=== PATIENT | male | born 1975 | race Caucasian/White ===

== ENCOUNTER 2019-05-16 12:15 | Emergency (ER) | payer SELFPAY ==
[~2019-05-16] VITALS: Ht 188 cm; Wt 80.0 kg
[2019-05-16 13:32] LABS: BASOPHILS # (AUTO) 0.06 x10^3/uL (0-0.1); BASOPHILS % (AUTO) 0 % (0-1); EOSINOPHILS # (AUTO) 0.01 x10^3/uL (0-0.4); EOSINOPHILS % (AUTO) 0 % (1-7); LYMPHOCYTES # (AUTO) 1.42 x10^3/uL (1-3.4); LYMPHOCYTES % (AUTO) 9 % (22-44); MD NO; MEAN CORPUSCULAR HEMOGLOBIN 30.1 pg (27.5-34.5); MEAN CORPUSCULAR HGB CONC 33.8 g/dL (33.2-36.2); MEAN CORPUSCULAR VOLUME 88.9 fL (81-97); MEAN PLATELET VOLUME 7.8 fL (7.4-10.4); MONOCYTES % (AUTO) 7 % (2-9); NEUTROPHILS # (AUTO) 12.73 x10^3/uL (1.8-6.8); NEUTROPHILS % (AUTO) 83 % (42-75); PLATELET COUNT 363 x10^3/uL (130-400); RED BLOOD COUNT 5.04 x10^6/uL (4.38-5.82); RED CELL DISTRIBUTION WIDTH 13.8 % (9.4-14.8)
[2019-05-16 13:46] LABS: ALANINE AMINOTRANSFERASE 21 U/L (12-78); ALBUMIN 4.2 g/dL (3.4-5.0); ANION GAP 8 mmol/L (5-15); CALCIUM 9.9 mg/dL (8.5-10.1); CREATININE 0.93 mg/dL (0.7-1.3); SALICYLATE LEVEL 2.7 mg/dL (2.8-20.0)
[2019-05-16 13:48] LABS: ALKALINE PHOSPHATASE 102 U/L (45-117); BILIRUBIN,TOTAL 0.3 mg/dL (0.2-1.0); TOTAL PROTEIN 7.8 g/dL (6.4-8.2)
[2019-05-16 14:01] LABS: CHLORIDE 102 mmol/L (98-107)
[2019-05-16] MEDS ORDERED: FLUO20CA19 PO (14:08)
[2019-05-16] MEDS ORDERED: BENZ2AMP4 PO (14:08)
[2019-05-16] MEDS ORDERED: DIVA500T4 PO (14:08)
[2019-05-16] MEDS ORDERED: PALI9TAB PO (14:08)
--- NOTE | 2019-05-16 14:10 | NUR ---
BOUCHRA CEJA FROM [facility] BREAK CLOTHING REMOVED AND SECURED
[2019-05-16 16:37] VITALS: BP 148/92
== END 2019-05-16 16:41 | disposition home or self-care (01) ==
LOC: ED 16:35
DX: F20.9 Schizophrenia, unspecified (principal); R41.82 Altered mental status, unspecified
CPT/HCPCS: 36415; 80053; 80307; 85025; 99284

== ENCOUNTER 2020-11-12 00:11 | Inpatient (IN) | payer MEDICARE, MEDICAID ==
[~2020-11-12] VITALS: Ht 182.9 cm; Wt 74.4 kg
[~2020-11-12 00:11] MED LIST: BENZ2AMP4 PO; DIVA500T4 PO; FLUO20CA19 PO; PALI9TAB PO
[2020-11-12] MEDS ORDERED: ONDANSETRON ODT 4 MG PO PRN (00:30)
[2020-11-12] MEDS ORDERED: BISACODYL 10 MG SUPP PR PRN (00:30)
[2020-11-12] MEDS ORDERED: DOCUSATE 100 MG CAPSULE PO PRN (00:30)
[2020-11-12] MEDS ORDERED: HALOPERIDOL 5 MG/ML IM PRN (00:30)
[2020-11-12] MEDS ORDERED: HALOPERIDOL 5 MG TABLET PO PRN (00:30)
[2020-11-12] MEDS ORDERED: LORazepam 2 MG/ML, 1ML IM PRN (00:30)
[2020-11-12] MEDS ORDERED: ACETAMINOPHEN 325 MG TABLET PO PRN (00:30)
[2020-11-12] MEDS ORDERED: POLYETHYLENE GLYCOL 17 GM PACKET PO PRN (00:30)
[2020-11-12] MEDS ORDERED: DIPHENHYDRAMINE 50 MG/ML, 1ML IM PRN (00:30)
[2020-11-12 00:39] VITALS: BP 135/97
[2020-11-12] MEDS ORDERED: PLEASE ENTER HEIGHT AND WEIGHT MC SCH (01:00)
[2020-11-12 05:24] LABS: MICROSCOPIC NOT IND
[2020-11-12 07:10] VITALS: BP 109/77
[2020-11-12] MEDS: PALIPERIDONE 3 MG TAB.ER.24 PO SCH (13:05)
[2020-11-12] MEDS: DIVALPROEX 500 MG TABLET.DR PO SCH ×2 (13:05→20:38)
[2020-11-12] MEDS: TRIHEXYPHENIDYL 2MG TABLET PO SCH ×2 (16:06→20:38)
[2020-11-12 19:12] VITALS: BP 106/64
[2020-11-13 07:35] VITALS: BP 90/55
[2020-11-13] MEDS: DIVALPROEX 500 MG TABLET.DR PO SCH ×2 (09:23→20:13)
[2020-11-13] MEDS: PALIPERIDONE 3 MG TAB.ER.24 PO SCH (09:23)
[2020-11-13] MEDS: TRIHEXYPHENIDYL 2MG TABLET PO SCH ×3 (09:23→20:13)
[2020-11-13 19:18] VITALS: BP 100/64
[2020-11-14 07:39] VITALS: BP 78/55
[2020-11-14] MEDS: TRIHEXYPHENIDYL 2MG TABLET PO SCH ×3 (09:32→20:17)
[2020-11-14] MEDS: DIVALPROEX 500 MG TABLET.DR PO SCH ×2 (09:33→20:17)
[2020-11-14] MEDS: PALIPERIDONE 3 MG TAB.ER.24 PO SCH (09:33)
[2020-11-14 18:46] VITALS: BP 126/85
[2020-11-15 07:22] VITALS: BP 93/66
[2020-11-15] MEDS: PALIPERIDONE 3 MG TAB.ER.24 PO SCH (08:54)
[2020-11-15] MEDS: TRIHEXYPHENIDYL 2MG TABLET PO SCH ×3 (08:54→20:15)
[2020-11-15] MEDS: DIVALPROEX 500 MG TABLET.DR PO SCH ×2 (08:54→20:15)
[2020-11-15 19:32] VITALS: BP 100/60
[2020-11-16 07:51] VITALS: BP 92/64
[2020-11-16] MEDS: TRIHEXYPHENIDYL 2MG TABLET PO SCH ×3 (08:38→20:24)
[2020-11-16] MEDS: PALIPERIDONE 3 MG TAB.ER.24 PO SCH (08:38)
[2020-11-16] MEDS: DIVALPROEX 500 MG TABLET.DR PO SCH ×2 (08:38→20:24)
[2020-11-16 19:24] VITALS: BP 100/65
[2020-11-16] MEDS: LORazepam 1MG TABLET PO PRN (20:24)
[2020-11-17 07:38] VITALS: BP 96/63
[2020-11-17] MEDS: PALIPERIDONE 3 MG TAB.ER.24 PO SCH (07:51)
[2020-11-17] MEDS: DIVALPROEX 500 MG TABLET.DR PO SCH ×2 (07:51→20:24)
[2020-11-17] MEDS: TRIHEXYPHENIDYL 2MG TABLET PO SCH ×3 (07:51→20:24)
[2020-11-17] MEDS: LORazepam 1MG TABLET PO PRN (16:09)
[2020-11-17 18:10] VITALS: BP 113/76
[2020-11-17] MEDS: DIPHENHYDRAMINE 50 MG CAPSULE PO PRN (20:24)
[2020-11-18] MEDS: DIVALPROEX 500 MG TABLET.DR PO SCH ×2 (08:11→20:16)
[2020-11-18] MEDS: TRIHEXYPHENIDYL 2MG TABLET PO SCH ×2 (08:11→15:45)
[2020-11-18] MEDS: PALIPERIDONE 3 MG TAB.ER.24 PO SCH (08:11)
[2020-11-18 08:43] VITALS: BP 103/58
[2020-11-18 19:45] VITALS: BP 107/68
[2020-11-18] MEDS: DIPHENHYDRAMINE 50 MG CAPSULE PO PRN (20:16)
[2020-11-19 07:06] VITALS: BP 94/59
[2020-11-19] MEDS: DIVALPROEX 500 MG TABLET.DR PO SCH ×2 (08:43→19:50)
[2020-11-19] MEDS: TRIHEXYPHENIDYL 2MG TABLET PO SCH ×2 (08:43→12:18)
[2020-11-19] MEDS: PALIPERIDONE 3 MG TAB.ER.24 PO SCH (08:44)
[2020-11-19 20:01] VITALS: BP 108/69
[2020-11-20 07:16] VITALS: BP 89/59
[2020-11-20] MEDS: PALIPERIDONE 3 MG TAB.ER.24 PO SCH (08:40)
[2020-11-20] MEDS: TRIHEXYPHENIDYL 2MG TABLET PO SCH ×2 (08:41→12:13)
[2020-11-20] MEDS: DIVALPROEX 500 MG TABLET.DR PO SCH ×2 (08:41→20:44)
[2020-11-20 18:02] VITALS: BP 109/65
[2020-11-21 07:18] VITALS: BP 128/76
[2020-11-21] MEDS: DIVALPROEX 500 MG TABLET.DR PO SCH ×2 (09:55→21:02)
[2020-11-21] MEDS: TRIHEXYPHENIDYL 2MG TABLET PO SCH ×2 (09:55→12:52)
[2020-11-21] MEDS: PALIPERIDONE 3 MG TAB.ER.24 PO SCH (09:55)
[2020-11-21 19:13] VITALS: BP 123/82
[2020-11-22 07:28] VITALS: BP 91/53
[2020-11-22] MEDS: TRIHEXYPHENIDYL 2MG TABLET PO SCH ×2 (08:29→12:23)
[2020-11-22] MEDS: PALIPERIDONE 3 MG TAB.ER.24 PO SCH (08:29)
[2020-11-22] MEDS: DIVALPROEX 500 MG TABLET.DR PO SCH ×2 (08:29→20:41)
[2020-11-22 18:37] VITALS: BP 109/79
[2020-11-23 07:44] VITALS: BP 95/60
[2020-11-23] MEDS: PALIPERIDONE 3 MG TAB.ER.24 PO SCH (08:49)
[2020-11-23] MEDS: DIVALPROEX 500 MG TABLET.DR PO SCH ×2 (08:49→21:27)
[2020-11-23] MEDS: TRIHEXYPHENIDYL 2MG TABLET PO SCH ×2 (08:49→11:41)
[2020-11-23 19:39] VITALS: BP 131/82
[2020-11-24 07:34] VITALS: BP 100/66
[2020-11-24] MEDS: DIVALPROEX 500 MG TABLET.DR PO SCH ×2 (08:37→19:57)
[2020-11-24] MEDS: PALIPERIDONE 3 MG TAB.ER.24 PO SCH (08:37)
[2020-11-24] MEDS: TRIHEXYPHENIDYL 2MG TABLET PO SCH ×2 (08:38→12:48)
[2020-11-24 19:13] VITALS: BP 105/71
[2020-11-25 07:22] VITALS: BP 92/63
[2020-11-25] MEDS: TRIHEXYPHENIDYL 2MG TABLET PO SCH ×2 (07:50→12:03)
[2020-11-25] MEDS: DIVALPROEX 500 MG TABLET.DR PO SCH ×2 (07:50→20:00)
[2020-11-25] MEDS: PALIPERIDONE 3 MG TAB.ER.24 PO SCH (07:51)
[2020-11-25 19:13] VITALS: BP 101/60
[2020-11-26 07:24] VITALS: BP 104/70
[2020-11-26] MEDS: PALIPERIDONE 3 MG TAB.ER.24 PO SCH (08:28)
[2020-11-26] MEDS: TRIHEXYPHENIDYL 2MG TABLET PO SCH ×2 (08:28→12:02)
[2020-11-26] MEDS: DIVALPROEX 500 MG TABLET.DR PO SCH ×2 (08:29→20:25)
[2020-11-26 19:51] VITALS: BP 121/70
[2020-11-27 07:48] VITALS: BP 111/70
[2020-11-27] MEDS: PALIPERIDONE 3 MG TAB.ER.24 PO SCH (08:24)
[2020-11-27] MEDS: DIVALPROEX 500 MG TABLET.DR PO SCH ×2 (08:24→20:30)
[2020-11-27] MEDS: TRIHEXYPHENIDYL 2MG TABLET PO SCH ×2 (08:24→12:50)
[2020-11-27 19:38] VITALS: BP 112/75
[2020-11-28 07:16] VITALS: BP 106/71
[2020-11-28] MEDS: PALIPERIDONE 3 MG TAB.ER.24 PO SCH (08:29)
[2020-11-28] MEDS: TRIHEXYPHENIDYL 2MG TABLET PO SCH ×2 (08:29→12:38)
[2020-11-28] MEDS: DIVALPROEX 500 MG TABLET.DR PO SCH ×2 (08:29→21:57)
[2020-11-28 19:33] VITALS: BP 128/85
[2020-11-29 07:42] VITALS: BP 92/68
[2020-11-29] MEDS: PALIPERIDONE 3 MG TAB.ER.24 PO SCH (08:09)
[2020-11-29] MEDS: TRIHEXYPHENIDYL 2MG TABLET PO SCH ×2 (08:09→12:34)
[2020-11-29] MEDS: DIVALPROEX 500 MG TABLET.DR PO SCH ×2 (08:09→20:30)
[2020-11-29 19:20] VITALS: BP 132/82
[2020-11-30 07:18] VITALS: BP 101/69
[2020-11-30] MEDS: DIVALPROEX 500 MG TABLET.DR PO SCH ×2 (08:44→20:18)
[2020-11-30] MEDS: TRIHEXYPHENIDYL 2MG TABLET PO SCH ×2 (08:44→12:44)
[2020-11-30] MEDS: PALIPERIDONE 3 MG TAB.ER.24 PO SCH (08:45)
[2020-11-30 18:32] VITALS: BP 114/74
[2020-12-01 07:29] VITALS: BP 90/61
[2020-12-01] MEDS: TRIHEXYPHENIDYL 2MG TABLET PO SCH ×2 (08:33→12:29)
[2020-12-01] MEDS: PALIPERIDONE 3 MG TAB.ER.24 PO SCH (08:33)
[2020-12-01] MEDS: DIVALPROEX 500 MG TABLET.DR PO SCH ×2 (08:33→20:15)
[2020-12-01] MEDS ORDERED: PALI3TAB11 PO (13:39)
[2020-12-01] MEDS ORDERED: DIVA-61 PO (13:39)
[2020-12-01] MEDS ORDERED: TRIH2TAB3 PO (13:39)
[2020-12-01 19:10] VITALS: BP 103/68
[2020-12-02 07:32] VITALS: BP 90/63
[2020-12-02] MEDS: PALIPERIDONE 3 MG TAB.ER.24 PO SCH (08:40)
[2020-12-02] MEDS: TRIHEXYPHENIDYL 2MG TABLET PO SCH ×2 (08:40→11:31)
[2020-12-02] MEDS: DIVALPROEX 500 MG TABLET.DR PO SCH (08:40)
== END 2020-12-02 13:22 | disposition home or self-care (01) | DRG 885 ==
LOC: 3E 00:11
PROVIDERS: ADMIT Psychiatry & Neurology Psychosomatic Medicine; ATTEND Psychiatry & Neurology Psychosomatic Medicine
DX: F20.0 Paranoid schizophrenia (principal); D64.9 Anemia, unspecified; F17.210 Nicotine dependence, cigarettes, uncomplicated; Z56.0 Unemployment, unspecified; Z79.899 Other long term (current) drug therapy; Z91.19 Patient's noncompliance with other medical treatment and regimen; R62.50 Unspecified lack of expected normal physiological development in childhood
CPT/HCPCS: 36415; 71045; 80164; 81003; 93005

== ENCOUNTER 2021-01-07 23:42 | Observation (INO) | payer MEDICARE, MEDICAID ==
[~2021-01-07] VITALS: Ht 188 cm; Wt 69.0 kg
[~2021-01-07 23:42] MED LIST changes: +DIVA-61 PO; +PALI3TAB11 PO; +TRIH2TAB3 PO
--- NOTE | 2021-01-08 | NUR ---
INITIAL ENCOUNTER: Pt presents to ED by way of EMS[facility]. Being placed on L2K by [facility]. Pt was found walking down [address]. States he was walking from [place], trying to find cigarettes, food, something to drink. Pt denies any physical complaints, other than a splinter in a undisclosed location and some difficulty breathing. Pt satting WNL on RA, speaking in full sentences, respirations even and unlabored. Pt hx remarkable for Schizoaffective disorder. Unclear whether pt is on medications or compliant with treatment for this. Pt is disheveled, has minimal belongings, is anxious/skeptikal about treatment modalities. Pt is A&Ox3, cooperative, however, requires frequent re-direction. Pt denies any other remarkable PMH. Endorses smoking cigarettes, but denies any drugs or etoh abuse. Pt denies any SI/HI, any past attempts.
--- NOTE | 2021-01-08 00:01 | NUR ---
LABS DRAWN AT THIS TIME. PT ENCOURAGED TO PROVIDE URINE SAMPLE. PROVIDED WITH SNACKS.
[2021-01-08 00:08] LABS: BASOPHILS % (AUTO) 1 % (0-1); EOSINOPHILS % (AUTO) 0 % (1-7); LYMPHOCYTES % (AUTO) 21 % (22-44); MEAN CORPUSCULAR HEMOGLOBIN 30.5 pg (27.5-34.5); MEAN CORPUSCULAR HGB CONC 34.7 g/dL (33.2-36.2); MEAN PLATELET VOLUME 7.3 fL (7.4-10.4); MONOCYTES % (AUTO) 7 % (2-9); NEUTROPHILS % (AUTO) 72 % (42-75); PLATELET COUNT 302 x10^3/uL (130-400); RED CELL DISTRIBUTION WIDTH 13.6 % (9.4-14.8)
[2021-01-08 00:19] LABS: ALBUMIN 3.4 g/dL (3.4-5.0); ANION GAP 6 mmol/L (5-15); CALCIUM 8.7 mg/dL (8.5-10.1); CHLORIDE 100 mmol/L (98-107); SALICYLATE LEVEL 2.7 mg/dL (2.8-20.0)
[2021-01-08 00:31] LABS: ALANINE AMINOTRANSFERASE 20 U/L (12-78); ALKALINE PHOSPHATASE 73 U/L (45-117); BILIRUBIN,TOTAL 0.4 mg/dL (0.2-1.0); TOTAL PROTEIN 6.7 g/dL (6.4-8.2)
--- NOTE | 2021-01-08 00:55 | NUR ---
PT REFUSING TO CHANGE INTO GOWN AND HAVE BELONGINGS SECURED.
[2021-01-08] MEDS ORDERED: HALOPERIDOL 5 MG/ML ONE (01:00)
[2021-01-08] MEDS ORDERED: HALOPERIDOL 5 MG/ML IM ONE (01:00)
--- NOTE | 2021-01-08 01:05 | NUR ---
PT MEDICATED W/ 5IM HALDOL. TOLERATED WELL. BELONGINGS LABELED AND SECURED IN LOCK UP.
--- NOTE | 2021-01-08 01:15 | NUR ---
Report received from ANDREA Jo. This RN to assume care.
--- NOTE | 2021-01-08 01:16 | NUR ---
Patient moved to room 3. Room secured, belongings locked in cabinet.
--- NOTE | 2021-01-08 01:22 | NUR ---
No sitter available at this time. Performing q15 checks. Provided sprite. Patient aware that a urine sample is required.
--- NOTE | 2021-01-08 01:22 | NUR ---
REPORT TO DMITRYRN NO FURTHER QUESTIONS AT THIS TIME.
--- NOTE | 2021-01-08 01:55 | NUR ---
BREAK RN: Patient is resting comfortably in bed. Bed in lowest, rails engaged, call light on lap. NAD, EYES CLOSED, EVEN AND UNLABORED RESPIRATIONS, WCTM.
--- NOTE | 2021-01-08 02:30 | NUR ---
Patient sleeping in gurney. Respirations even and unlabored. Room secured, belongings locked in cabinet. No sitter available. This RN performing q15 checks.
--- NOTE | 2021-01-08 03:20 | NUR ---
Patient sleeping in gurney. Respirations even and unlabored. Room secured, belongings locked in cabinet. No sitter available. This RN performing q15 checks.
--- NOTE | 2021-01-08 03:54 | NUR ---
Sitter arrived and outside patient room. Patient sleeping in [facility]. Respirations even and unlabored. Room secured, belongings locked in cabinet.
--- NOTE | 2021-01-08 04:45 | NUR ---
[place] Respirations even and unlabored. Room secured, belongings locked in cabinet. Sitter outside.
--- NOTE | 2021-01-08 05:19 | NUR ---
[facility] TAKING A LOOK AT THE PT
--- NOTE | 2021-01-08 05:35 | NUR ---
Patient sleeping in [place]. Respirations even and unlabored. Room secured, belongings locked in cabinet. Sitter outside.
--- NOTE | 2021-01-08 06:14 | NUR ---
[place] sleeping in [place]. Respirations even and unlabored. Room secured, belongings locked in cabinet. Sitter outside.
--- NOTE | 2021-01-08 06:20 | NUR ---
Meal tray ordered.
--- NOTE | 2021-01-08 06:34 | NUR ---
[facility] ([facility]) SAYS THEY ARE INTERESTED IN TAKING PT, BUT NEED URINE. AND A COVID SWAB.
--- NOTE | 2021-01-08 06:35 | NUR ---
Attempted to get urine. Patient refusing.
--- NOTE | 2021-01-08 07:02 | NUR ---
Report to ANDREA Lutz. Patient care transferred.
--- NOTE | 2021-01-08 07:04 | NUR ---
REPORT FROM JQ, ASSUME CARE OF PT AT THIS TIME. CONTINUE TO AWAIT URINE SPECIMEN. SITTER AT DOORWAY.
--- NOTE | 2021-01-08 08:00 | NUR ---
URINAL PROVIDED TO PT, PT SLEEPING. SITTER AT DOORWAY.
--- NOTE | 2021-01-08 08:30 | NUR ---
MEAL TRAY PROVIDED. PT MOVING IN BED INTERMITTENTLY, DOES NOT WANT TO EAT AT THIS TIME-WANTS TO SLEEP LONGER AND WILL NOT ANSWER SI REASSESSMENT QUESTIONS. SITTER AT DOORWAY.
--- NOTE | 2021-01-08 09:18 | NUR ---
PT SLEEPING, EVEN/RISE AND FALL OF CHEST. SITTER AT DOORWAY.
--- NOTE | 2021-01-08 10:00 | NUR ---
LUNCH TRAY PROVIDED. SITTER AT DOORWAY.
--- NOTE | 2021-01-08 10:09 | NUR ---
URINE COLLECTED. RAPID COVID SWAB COLLECTED. BOTH SPECIMENS WALKED TO LAB. SI REASSESSMENT AND VS OBTAINED. SITTER AT DOORWAY. Addendum: 01/08/21 at 1018 by NICHOL PT DENIES SI AT THIS TIME. BREAKFAST MEAL TRAY FINISHED.
[2021-01-08 10:46] LABS: AMPHETAMINE SCREEN, URINE Negative (Negative); BARBITURATE SCREEN, URINE Negative (Negative); BENZODIAZEPINE SCREEN, URINE Negative (Negative); CANNABINOID SCREEN, URINE Positive (Negative); COCAINE SCREEN, URINE Negative (Negative); METHADONE SCREEN, URINE Negative (Negative); OPIATE SCREEN, URINE Negative (Negative)
--- NOTE | 2021-01-08 11:21 | NUR ---
ATTEMPT TO CALL REPORT TO U. RN TO CALL BACK.
[2021-01-08 11:56] VITALS: BP 117/90
== END 2021-01-08 20:54 ==
LOC: ED 01-08 00:33 → EDIP 01-08 00:42 → INTOOBSV 01-08 00:42
PROVIDERS: ADMIT Student in an Organized Health Care Education/Training Program; ATTEND Student in an Organized Health Care Education/Training Program
DX: F20.0 Paranoid schizophrenia (principal); F29 Unspecified psychosis not due to a substance or known physiological condition; F17.200 Nicotine dependence, unspecified, uncomplicated; F12.90 Cannabis use, unspecified, uncomplicated; Z91.83 Wandering in diseases classified elsewhere; Z63.8 Other specified problems related to primary support group; Z79.899 Other long term (current) drug therapy
CPT/HCPCS: 36415; 80053; 80299; 80307; 80320; 80329; 84443; 85025; 96372; 99285; G0378; J1630; G0480

== ENCOUNTER 2021-01-08 07:19 | Inpatient (IN) | payer MEDICARE, MEDICAID ==
[~2021-01-08] VITALS: Ht 188 cm; Wt 71.8 kg
[2021-01-08] MEDS ORDERED: BISACODYL 10 MG SUPP PR PRN (10:30)
[2021-01-08] MEDS ORDERED: POLYETHYLENE GLYCOL 17 GM PACKET PO PRN (10:30)
[2021-01-08] MEDS ORDERED: ONDANSETRON ODT 4 MG PO PRN (10:30)
[2021-01-08] MEDS ORDERED: ACETAMINOPHEN 325 MG TABLET PO PRN (10:30)
[2021-01-08] MEDS ORDERED: DOCUSATE 100 MG CAPSULE PO PRN (10:30)
[2021-01-08 11:37] LABS: MICROSCOPIC NOT IND
[2021-01-08 12:05] VITALS: BP 117/90
[2021-01-08] MEDS ORDERED: PLEASE ENTER HEIGHT AND WEIGHT MC SCH (12:30)
[2021-01-08 13:06] VITALS: BP 117/90
[2021-01-08 19:22] VITALS: BP 128/84
[2021-01-08] MEDS: DIVALPROEX 500 MG TABLET.DR PO SCH (21:00)
[2021-01-09 07:34] VITALS: BP 117/86
[2021-01-09] MEDS: TRIHEXYPHENIDYL 2MG TABLET PO SCH ×2 (08:14→12:47)
[2021-01-09] MEDS: PALIPERIDONE 3 MG TAB.ER.24 PO SCH (08:14)
[2021-01-09] MEDS: DIVALPROEX 500 MG TABLET.DR PO SCH ×2 (08:14→20:16)
[2021-01-09] MEDS: FLUOXETINE HCL 20 MG CAPSULE PO SCH (08:14)
[2021-01-09] MEDS ORDERED: PALIPERIDONE 3 MG TAB.ER.24 PO SCH (09:00)
[2021-01-09 19:46] VITALS: BP 123/85
[2021-01-10 07:29] VITALS: BP 116/87
[2021-01-10] MEDS: PALIPERIDONE 3 MG TAB.ER.24 PO SCH (07:51)
[2021-01-10] MEDS: FLUOXETINE HCL 20 MG CAPSULE PO SCH (07:51)
[2021-01-10] MEDS: TRIHEXYPHENIDYL 2MG TABLET PO SCH ×2 (07:51→11:38)
[2021-01-10] MEDS: DIVALPROEX 500 MG TABLET.DR PO SCH ×2 (07:51→20:11)
[2021-01-10 19:17] VITALS: BP 123/82
[2021-01-11 06:15] VITALS: BP 108/71
[2021-01-11] MEDS: FLUOXETINE HCL 20 MG CAPSULE PO SCH (08:52)
[2021-01-11] MEDS: PALIPERIDONE 3 MG TAB.ER.24 PO SCH (08:52)
[2021-01-11] MEDS: DIVALPROEX 500 MG TABLET.DR PO SCH ×2 (08:52→20:12)
[2021-01-11] MEDS: TRIHEXYPHENIDYL 2MG TABLET PO SCH ×2 (08:52→14:52)
[2021-01-11 20:00] VITALS: BP 112/75
[2021-01-12 07:32] VITALS: BP 124/89
[2021-01-12] MEDS: TRIHEXYPHENIDYL 2MG TABLET PO SCH ×2 (08:57→11:50)
[2021-01-12] MEDS: DIVALPROEX 500 MG TABLET.DR PO SCH ×2 (08:57→20:07)
[2021-01-12] MEDS: FLUOXETINE HCL 20 MG CAPSULE PO SCH (08:57)
[2021-01-12] MEDS: PALIPERIDONE 3 MG TAB.ER.24 PO SCH (09:36)
[2021-01-12 20:21] VITALS: BP 142/86
[2021-01-13 07:40] VITALS: BP 135/97
[2021-01-13] MEDS: DIVALPROEX 500 MG TABLET.DR PO SCH ×2 (08:26→21:40)
[2021-01-13] MEDS: TRIHEXYPHENIDYL 2MG TABLET PO SCH ×2 (08:26→13:04)
[2021-01-13] MEDS: FLUOXETINE HCL 20 MG CAPSULE PO SCH (08:26)
[2021-01-13] MEDS: PALIPERIDONE 3 MG TAB.ER.24 PO SCH (08:26)
[2021-01-13 19:59] VITALS: BP 152/97
[2021-01-14 07:16] VITALS: BP 109/63
[2021-01-14] MEDS: FLUOXETINE HCL 20 MG CAPSULE PO SCH (08:32)
[2021-01-14] MEDS: DIVALPROEX 500 MG TABLET.DR PO SCH ×2 (08:32→19:58)
[2021-01-14] MEDS: PALIPERIDONE 3 MG TAB.ER.24 PO SCH (08:32)
[2021-01-14] MEDS: TRIHEXYPHENIDYL 2MG TABLET PO SCH ×2 (08:32→12:15)
[2021-01-14 15:25] LABS: ANION GAP 5 mmol/L (5-15); CALCIUM 8.8 mg/dL (8.5-10.1); CHLORIDE 90 mmol/L (98-107); CREATININE 0.58 mg/dL (0.7-1.3)
[2021-01-14 20:06] VITALS: BP 133/88
[2021-01-14 20:34] LABS: CHLORIDE,URINE RANDOM 28 mmol/L; POTASSIUM,URINE RANDOM 32 mmol/L; SODIUM,URINE RANDOM 30 mmol/L
[2021-01-15 01:08] LABS: ALBUMIN 2.7 g/dL (3.4-5.0); ANION GAP 4 mmol/L (5-15); CALCIUM 8.8 mg/dL (8.5-10.1); CHLORIDE 99 mmol/L (98-107); CREATININE 0.66 mg/dL (0.7-1.3)
[2021-01-15 07:13] LABS: ANION GAP 6 mmol/L (5-15); CALCIUM 9.1 mg/dL (8.5-10.1); CHLORIDE 100 mmol/L (98-107); CREATININE 0.65 mg/dL (0.7-1.3)
[2021-01-15 07:46] VITALS: BP 103/63
[2021-01-15] MEDS: PALIPERIDONE 3 MG TAB.ER.24 PO SCH (08:45)
[2021-01-15] MEDS: TRIHEXYPHENIDYL 2MG TABLET PO SCH ×2 (08:45→13:10)
[2021-01-15] MEDS: FLUOXETINE HCL 20 MG CAPSULE PO SCH (08:45)
[2021-01-15] MEDS: DIVALPROEX 500 MG TABLET.DR PO SCH ×2 (08:45→20:34)
[2021-01-15 10:12] LABS: ALBUMIN 3.1 g/dL (3.4-5.0); ANION GAP 6 mmol/L (5-15); CALCIUM 9.7 mg/dL (8.5-10.1); CHLORIDE 100 mmol/L (98-107); CREATININE 0.58 mg/dL (0.7-1.3)
[2021-01-15 19:37] VITALS: BP 113/73
[2021-01-16 07:50] VITALS: BP 121/65
[2021-01-16] MEDS: FLUOXETINE HCL 20 MG CAPSULE PO SCH (08:47)
[2021-01-16] MEDS: PALIPERIDONE 3 MG TAB.ER.24 PO SCH (08:47)
[2021-01-16] MEDS: DIVALPROEX 500 MG TABLET.DR PO SCH ×2 (08:47→21:31)
[2021-01-16] MEDS: TRIHEXYPHENIDYL 2MG TABLET PO SCH ×2 (08:51→13:26)
[2021-01-16 19:49] VITALS: BP 127/88
[2021-01-17 07:30] VITALS: BP 108/72
[2021-01-17] MEDS: TRIHEXYPHENIDYL 2MG TABLET PO SCH ×2 (08:44→13:55)
[2021-01-17] MEDS: FLUOXETINE HCL 20 MG CAPSULE PO SCH (08:44)
[2021-01-17] MEDS: PALIPERIDONE 3 MG TAB.ER.24 PO SCH (08:44)
[2021-01-17] MEDS: DIVALPROEX 500 MG TABLET.DR PO SCH ×2 (08:44→20:19)
[2021-01-17 18:59] VITALS: BP 123/70
[2021-01-18 07:32] VITALS: BP 123/70
[2021-01-18] MEDS: FLUOXETINE HCL 20 MG CAPSULE PO SCH (09:10)
[2021-01-18] MEDS: DIVALPROEX 500 MG TABLET.DR PO SCH ×2 (09:10→20:53)
[2021-01-18] MEDS: TRIHEXYPHENIDYL 2MG TABLET PO SCH ×2 (09:10→11:41)
[2021-01-18] MEDS: PALIPERIDONE 3 MG TAB.ER.24 PO SCH (09:10)
[2021-01-18 19:29] VITALS: BP 122/78
[2021-01-19 07:41] VITALS: BP 115/73
[2021-01-19] MEDS: DIVALPROEX 500 MG TABLET.DR PO SCH ×2 (08:57→20:33)
[2021-01-19] MEDS: TRIHEXYPHENIDYL 2MG TABLET PO SCH ×2 (08:57→12:22)
[2021-01-19] MEDS: FLUOXETINE HCL 20 MG CAPSULE PO SCH (08:57)
[2021-01-19] MEDS: PALIPERIDONE 3 MG TAB.ER.24 PO SCH (10:19)
[2021-01-19 16:26] LABS: ANION GAP 7 mmol/L (5-15); CALCIUM 10.1 mg/dL (8.5-10.1); CHLORIDE 99 mmol/L (98-107); CREATININE 0.77 mg/dL (0.7-1.3)
[2021-01-19 19:25] VITALS: BP 130/83
[2021-01-20 07:48] VITALS: BP 121/79
[2021-01-20] MEDS: FLUOXETINE HCL 20 MG CAPSULE PO SCH (08:59)
[2021-01-20] MEDS: PALIPERIDONE 3 MG TAB.ER.24 PO SCH (08:59)
[2021-01-20] MEDS: DIVALPROEX 500 MG TABLET.DR PO SCH ×2 (08:59→20:08)
[2021-01-20] MEDS: TRIHEXYPHENIDYL 2MG TABLET PO SCH ×2 (08:59→12:32)
[2021-01-20] MEDS ORDERED: DIVA-61 PO (17:13)
[2021-01-20] MEDS ORDERED: FLUO20CA19 PO (17:13)
[2021-01-20] MEDS ORDERED: TRIH2TAB3 PO (17:13)
[2021-01-20] MEDS ORDERED: PALI3TAB11 PO (17:13)
[2021-01-20 19:19] VITALS: BP 112/72
[2021-01-21 07:45] VITALS: BP 116/78
[2021-01-21] MEDS: PALIPERIDONE 3 MG TAB.ER.24 PO SCH (08:28)
[2021-01-21] MEDS: TRIHEXYPHENIDYL 2MG TABLET PO SCH (08:28)
[2021-01-21] MEDS: FLUOXETINE HCL 20 MG CAPSULE PO SCH (08:29)
[2021-01-21] MEDS: DIVALPROEX 500 MG TABLET.DR PO SCH (08:29)
== END 2021-01-21 10:53 | disposition home or self-care (01) | DRG 885 ==
LOC: 3E 11:57
PROVIDERS: ADMIT Psychiatry & Neurology Psychosomatic Medicine; ATTEND Psychiatry & Neurology Psychosomatic Medicine
DX: F20.0 Paranoid schizophrenia (principal); F32.9 Major depressive disorder, single episode, unspecified; F12.90 Cannabis use, unspecified, uncomplicated; R62.50 Unspecified lack of expected normal physiological development in childhood; F17.200 Nicotine dependence, unspecified, uncomplicated; Z79.899 Other long term (current) drug therapy; Z59.0 Homelessness
CPT/HCPCS: 36415; 71045; 80048; 81003; 82040; 82436; 84133; 84300; 87426; 93005